=== PATIENT | male | born 1950 | race Two or more races ===

== ENCOUNTER → 2019-12-27 08:44 | Outpatient (CLI) | payer OTHER ==
[~2019-12-27 08:44] MED LIST: COZAAR50 MG PO; FUSION PLUS CA1 EACH PO; HYDROCHLOROTH12.5 MG PO; SIMVASTATIN5 MG PO; TRULICITY1.5 MG/0.5; VITAMIN D2400 UNIT; vit b
== END | disposition home or self-care (01) ==
LOC: LAB 08:44 → RAD 08:44
DX: D50.0 Iron deficiency anemia secondary to blood loss (chronic) (principal); C18.4 Malignant neoplasm of transverse colon; R63.4 Abnormal weight loss

== ENCOUNTER 2019-12-29 07:45 | Inpatient (IN) | payer OTHER ==
[~2019-12-29] VITALS: Ht 177.8 cm; Wt 158.0 kg
[2019-12-29] MEDS ORDERED: HYDROCHLOROTH12.5 MG PO (13:36)
[2019-12-29] MEDS ORDERED: COZAAR50 MG PO (13:37)
[2019-12-29] MEDS ORDERED: FUSION PLUS CA1 EACH PO (13:37)
[2019-12-29] MEDS ORDERED: SIMVASTATIN5 MG PO (13:37)
[2019-12-29] MEDS ORDERED: TRULICITY1.5 MG/0.5 (13:38)
[2019-12-29] MEDS ORDERED: vit b (13:38)
[2019-12-29] MEDS ORDERED: VITAMIN D2400 UNIT (13:39)
[2020-01-03] MEDS ORDERED: VITAMIN D35000 UNI2 PO (09:28)
[2020-01-03] MEDS ORDERED: VITAMIN B122500 MCG (09:29)
[2020-01-03] MEDS ORDERED: VITAMIN B-12500 MC2 PO (09:32)
[2020-01-12] MEDS ORDERED: METFORMIN HCL1000 M3 PO (08:06)
[2020-01-12] MEDS ORDERED: GLIPIZIDE10 MG PO (08:06)
[2020-01-24] MEDS ORDERED: INTESTINEX680 M1 PO ×2 (08:38→11:38)
[2020-01-24] MEDS ORDERED: LEVSIN/SL0.125 MG SL (08:38)
[2020-01-24] MEDS ORDERED: TRULICITY1.5 MG/0.5 SUBCUTANEO (11:38)
[2020-01-24] MEDS ORDERED: INTEGRA F CAPS1 EACH PO (11:38)
[2020-01-24] MEDS ORDERED: HYDROCHLOROTH12.5 MG PO (11:38)
[2020-01-24] MEDS ORDERED: FAMOTIDINE20 MG PO (11:38)
[2020-01-24] MEDS ORDERED: GLIPIZIDE10 MG PO (11:38)
[2020-01-24] MEDS ORDERED: ABANEU-SL TABL1 EACH SL (11:38)
[2020-01-24] MEDS ORDERED: SIMVASTATIN5 MG PO (11:38)
[2020-01-24] MEDS ORDERED: METFORMIN HCL1000 M3 PO (11:38)
[2020-01-24] MEDS ORDERED: NOXIFOL-D32500 UNIT PO (11:38)
== END 2020-01-24 16:35 | disposition home health service (06) | DRG 329 ==
LOC: ADM 07:45 → ICU 01-02 13:36 → SURH 01-02 13:36 → CIR.AMB 01-04 12:15 → EDSTATUS 01-04 12:15 → SURH 01-05 23:49 → O/R 01-09 16:26 → ICU 01-09 20:14 → SURH 01-22 14:13
PROVIDERS: ADMIT Internal Medicine Geriatric Medicine; ATTEND Internal Medicine Geriatric Medicine
PROC: 0DTF0ZZ Resection of Right Large Intestine, Open Approach (ICD-10-PCS; principal; 2020-01-03)
PROC: 07TB0ZZ Resection of Mesenteric Lymphatic, Open Approach (ICD-10-PCS; 2020-01-03)
PROC: 0DT90ZZ Resection of Duodenum, Open Approach (ICD-10-PCS; 2020-01-03)
PROC: 0D1 Gastrointestinal System, Bypass (ICD-10-PCS; 2020-01-03)
PROC: 0DHA0UZ Insertion of Feeding Device into Jejunum, Open Approach (ICD-10-PCS; 2020-01-03)
PROC: 30233N1 Transfusion of Nonautologous Red Blood Cells into Peripheral Vein, Percutaneous Approach (ICD-10-PCS; 2020-01-03)
PROC: 4A033R1 Measurement of Arterial Saturation, Peripheral, Percutaneous Approach (ICD-10-PCS; 2020-01-03)
PROC: 4A12X4Z Monitoring of Cardiac Electrical Activity, External Approach (ICD-10-PCS; 2020-01-05)
PROC: 0DH67UZ Insertion of Feeding Device into Stomach, Via Natural or Artificial Opening (ICD-10-PCS; 2020-01-06)
PROC: 3E0G76Z Introduction of Nutritional Substance into Upper GI, Via Natural or Artificial Opening (ICD-10-PCS; 2020-01-06)
PROC: 0BH17EZ Insertion of Endotracheal Airway into Trachea, Via Natural or Artificial Opening (ICD-10-PCS; 2020-01-07)
PROC: 5A1945Z Respiratory Ventilation, 24-96 Consecutive Hours (ICD-10-PCS; 2020-01-07)
PROC: 3E0F7GC Introduction of Other Therapeutic Substance into Respiratory Tract, Via Natural or Artificial Opening (ICD-10-PCS; 2020-01-07)
PROC: 02HV33Z Insertion of Infusion Device into Superior Vena Cava, Percutaneous Approach (ICD-10-PCS; 2020-01-08)
PROC: 3E0436Z Introduction of Nutritional Substance into Central Vein, Percutaneous Approach (ICD-10-PCS; 2020-01-08)
PROC: 0W9930Z Drainage of Right Pleural Cavity with Drainage Device, Percutaneous Approach (ICD-10-PCS; 2020-01-08)
PROC: BB24YZZ Computerized Tomography (CT Scan) of Bilateral Lungs using Other Contrast (ICD-10-PCS; 2020-01-12)
PROC: BW21YZZ Computerized Tomography (CT Scan) of Abdomen and Pelvis using Other Contrast (ICD-10-PCS; 2020-01-12)
PROC: B54DZZZ Ultrasonography of Bilateral Lower Extremity Veins (ICD-10-PCS; 2020-01-13)
PROC: B24BZZZ Ultrasonography of Heart with Aorta (ICD-10-PCS; 2020-01-20)
DX: C18.2 Malignant neoplasm of ascending colon (principal); J96.01 Acute respiratory failure with hypoxia; A41.9 Sepsis, unspecified organism; R65.21 Severe sepsis with septic shock; B37.1 Pulmonary candidiasis; C78.4 Secondary malignant neoplasm of small intestine; K31.6 Fistula of stomach and duodenum; J90 Pleural effusion, not elsewhere classified; J98.11 Atelectasis; J93.83 Other pneumothorax; R50.82 Postprocedural fever; I95.9 Hypotension, unspecified; M62.81 Muscle weakness (generalized); R59.0 Localized enlarged lymph nodes; D50.0 Iron deficiency anemia secondary to blood loss (chronic); I11.9 Hypertensive heart disease without heart failure; G47.33 Obstructive sleep apnea (adult) (pediatric); E11.65 Type 2 diabetes mellitus with hyperglycemia; Z79.4 Long term (current) use of insulin